=== PATIENT | female | born 1980 | race Caucasian/White ===

== ENCOUNTER 2021-03-13 10:20 | Emergency (ER) | payer OTHER, SELFPAY ==
[2021-03-13 10:20] VITALS: BP 121/107; PULSE 108; RESP 28; TEMP 36.8; O2SAT 100
--- NOTE | 2021-03-13 10:52 | ED.GENADULT ---
HPI - General Adult General Chief complaint: Shortness of Breath/Dyspnea Stated complaint: ASTHMA ATTACK History of Present Illness HPI narrative: 40-year-old female presented emerged department for evaluation of worsening shortness of breath. Patient began developing COVID symptoms approximately 5 days ago. Patient states he began developing some respiratory symptoms approximately 2 days ago. Patient has been doing her home medications as directed. Patient suspects that her current nebulizer device is no longer working. Patient called EMS due to worsening shortness of breath and a suspected anxiety attack. Patient states after she got her albuterol her symptoms resolved. Upon arrival to the emergency department patient was talking on the phone and in no distress. Related Data Home Medications Medication Instructions Recorded Confirmed belladonna alkaloids-opium 16.2 1 supp AL BID PRN ea 01/03/20 02/05/21 mg-30 mg rectal suppository clonazepam 0.5 mg tablet 0.5 mg PO DAILY PRN 01/03/20 02/05/21 oxycodone 15 mg tablet 15 mg PO Q4H PRN 01/03/20 02/05/21 polyethylene glycol 3350 17 17 g PO DAILY 01/03/20 02/05/21 gram/dose oral powder baclofen 5 mg tablet 10 mg PO TID tablet 02/05/21 02/05/21 diazepam 10 mg tablet 10 mg PO QHS PRN 02/05/21 02/05/21 gabapentin 300 mg capsule 300 mg PO TID 02/05/21 02/05/21 methylphenidate HCl 10 mg tablet 10 mg PO BID tablet 02/06/21 02/05/21 Allergies Allergy/AdvReac Type Severity Reaction Status Date / Time doxycycline Allergy Mild NAUSEA Verified 03/13/21 10:27 latex Allergy Mild ITCHING Verified 03/13/21 10:27 mold Allergy Mild Wheezing Verified 03/13/21 10:27 soybean Allergy Mild Unknown Verified 03/13/21 10:27 cephalexin Allergy Unknown Asthma Verified 03/13/21 10:27 fluoxetine Allergy Unknown Unknown Verified 03/13/21 10:27 meloxicam Allergy Unknown Unknown Verified 03/13/21 10:27 naproxen Allergy Unknown Asthma Verified 03/13/21 10:27 NSAIDS (Non-Steroidal Allergy Unknown Asthma Verified 03/13/21 10:27 Anti-Inflamma exacerbation tramadol Allergy Unknown Unknown Verified 03/13/21 10:27 vancomycin Allergy Unknown Skin Verified 08/05/17 11:43 irritation bupropion [From Wellbutrin] Allergy Hallucinati Verified 02/05/21 13:33 ons Sulfa (Sulfonamide AdvReac Mild Rash Verified 02/05/21 13:21 Antibiotics) CEPHALEXIN MONOHYDRATE Allergy Unknown Unknown Uncoded 02/05/21 13:21 Review of Systems Review of Systems: CONSTITUTIONAL: Denies fever, chills, or sweats. EYES: Denies visual changes, redness, or discharge. ENT: Denies rhinorrhea, congestion, sore throat, or otalgia. CARDIOVASCULAR: Denies chest pain, palpitations, or edema. RESPIRATORY: Asthma with shortness of breath today GASTROINTESTINAL: Denies abdominal pain, nausea, vomiting, or diarrhea. GENITOURINARY: Denies dysuria or hematuria. SKIN: Denies rash or itching. MUSCULOSKELETAL: Denies back pain, joint pain, or myalgia. NEUROLOGIC: Denies headache, numbness, or weakness. PSYCHIATRIC: History of anxiety [facility] Past Medical History Medical History (Updated 03/14/21 @ 08:23 by Sagar Arias MD) ADHD, predominantly inattentive type (~08/05/17) Allergies Anxiety Arthritis Asthma Chronic pelvic pain in female Depression Eating disorder History of Eating disorder Endometriosis Headache Interstitial cystitis Migraines Mood disorder Seasonal allergies Surgical History Surgical History H/O: hysterectomy 2018 History of appendectomy (~06/17/10) History of hip surgery (~12/2011) arthroscopic labral repair & femoral head neck osteoplasty Family History Family History Mother Family history of osteoporosis Depression Family history of migraine headaches Asthma Family history of osteoarthritis Family history of allergic disorder Sibling Depression Patient's sister is in good health
[2021-03-13 11:05] VITALS: PULSE 111; RESP 19
[2021-03-13] MEDS: ALBUTEROL SULFATE NEB 2.5 MG/0.5 ML INH 5 MG INHALATION (11:05)
[2021-03-13 11:33] VITALS: BP 120/65; PULSE 115; RESP 18
[2021-03-13 12:16] LABS: Influenza A QL RT-PCR Negative (Negative); Influenza B QL RT-PCR Negative (Negative); SARS-CoV-2 RNA PCR Negative
== END 2021-03-13 11:33 | disposition home or self-care (01) ==
PROVIDERS: Emergency Provider Emergency Medicine; PCP Internal Medicine
DX: J45.909 Unspecified asthma, uncomplicated (principal); Z20.822 Contact with and (suspected) exposure to COVID-19; F41.9 Anxiety disorder, unspecified; F90.9 Attention-deficit hyperactivity disorder, unspecified type; M19.90 Unspecified osteoarthritis, unspecified site; F32.9 Major depressive disorder, single episode, unspecified
CPT/HCPCS: 87502; 94640; 99283; C9803; U0003; U0005

== ENCOUNTER 2021-04-27 18:35 | Emergency (ER) | payer OTHER, SELFPAY ==
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
--- NOTE | ~2021-04-27 | XR_ITS ---
XR thoracic spine 3V 04/27/2021 19:33 Indication: Back pain Procedure: 3 views thoracic spine Comparison: 04/27/2021 Findings: Vertebral body heights are maintained. No paraspinal soft tissue abnormality. Pedicles inta ct. Surrounding osseous structures within normal limits. No fracture or traumatic malalignment. Impression: 1: No acute abnormality of the thoracic spine. Reviewed, dictated and finalized at location A. ATIONAL RISK MANAGER Impression: 1: No acute abnormality of the thoracic spine.
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
[2021-04-27 18:44] VITALS: BP 112/76; PULSE 109; RESP 18; TEMP 36.8; O2SAT 98
[2021-04-27 18:47] VITALS: BP 112/76; PULSE 109; RESP 18; TEMP 36.8; O2SAT 98
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
== END 2021-04-27 19:58 | disposition home or self-care (01) ==
PROVIDERS: Emergency Provider Nurse Practitioner; PCP Internal Medicine
DX: S39.012A Strain of muscle, fascia and tendon of lower back, initial encounter (principal); S16.1XXA Strain of muscle, fascia and tendon at neck level, initial encounter; V49.40XA Driver injured in collision with unspecified motor vehicles in traffic accident, initial encounter; F12.20 Cannabis dependence, uncomplicated; M19.90 Unspecified osteoarthritis, unspecified site; J45.909 Unspecified asthma, uncomplicated; N80.9 Endometriosis, unspecified; F90.9 Attention-deficit hyperactivity disorder, unspecified type
CPT/HCPCS: 72050; 72072; 72100; 99214; G0463

== ENCOUNTER → 2021-05-04 11:58 | Outpatient (CLI) | payer OTHER, SELFPAY ==
--- NOTE | ~2021-05-04 | XR_ITS ---
EXAMINATION:XR cervical spine 4-5V DATE: 05/04/2021 12:21 INDICATION: Neck pain TECHNIQUE: AP, lateral, lateral flexion, lateral extension and odontoid views of the cervical spine a re provided. COMPARISON: None FINDINGS: Alignment is normal. There is normal motion on extension. There is decreased range of motion with fle xion. No abnormal transitory motion. Odontoid is intact. Normal atlantoaxial interval. Vertebral bod y heights are normal. Disc spaces are normal. Multilevel mild bilateral cervical facet osteoarthritis . Prevertebral soft tissues are normal. IMPRESSION: 1. Bilateral mild cervical facet osteoarthritis and decreased range of motion with flexion. Reviewed, dictated and finalized at location A. NDSKEEPER IMPRESSION: 1. Bilateral mild cervical facet osteoarthritis and decreased range of motion w ith flexion.
== END ==
PROVIDERS: PCP Internal Medicine; Visit Provider Chiropractor
DX: M50.30 Other cervical disc degeneration, unspecified cervical region (principal)
CPT/HCPCS: 72050

== ENCOUNTER 2021-06-12 20:34 | Inpatient (IN) | payer OTHER, SELFPAY ==
[2021-06-12] VITALS (12 sets, daily range): BP systolic 121–194; BP diastolic 81–122; PULSE 88–132; RESP 10–25; TEMP 35.8; O2SAT 96–100
--- NOTE | ~2021-06-12 | CT_ITS ---
EXAMINATION: CT chest abdomen pelvis w con DATE: 06/12/2021 22:06 INDICATION: Cardiac arrest TECHNIQUE: Transaxial computed tomographic images of the chest, abdomen, and pelvis were obtained aft er the administration of 100 cc of Omnipaque 350 intravenous contrast. The dose-length product (DLP) was 489.10 mGy-cm. Automated exposure control and iterative reconstruction technique were employed. COMPARISON: 06/14/2010 FINDINGS: CHEST CT: The endotracheal tube is in adequate position. The nasogastric tube is in the stomach. No pathologica lly enlarged thoracic lymph nodes are identified. The heart size is normal. There are patchy airspace opacities in the lungs. A left lower lobe pneumatocele is again noted. There is no pleural effusion or pneumothorax. ABDOMEN/PELVIS CT: The liver, spleen, pancreas, gallbladder, and adrenal glands are normal. The kidneys are unremarkable . No pathologically enlarged abdominal or pelvic lymph nodes are identified. There is no free intrape ritoneal gas. There is mild gaseous distention of the stomach. The bladder is decompressed by Harden c atheter. Changes of appendectomy are noted. IMPRESSION: 1. Patchy airspace opacities in the lungs which could reflect atelectasis or possibly pneumonia. 2. No acute findings of the abdomen or pelvis. Reviewed, dictated and finalized at location F. IMPRESSION: 1. Patchy airspace opacities in the lungs which could reflect atelectasis or po ssibly pneumonia. 2. No acute findings of the abdomen or pelvis.
--- NOTE | ~2021-06-12 | XR_ITS ---
EXAMINATION: XR chest PICC line EXAM DATE: 06/14/2021 12:00 INDICATION: PICC line placement. TECHNIQUE: Portable AP frontal chest x-ray was obtained. Comparison is made to prior examination from 06/14/2021. FINDINGS: There is a new right-sided PICC line, tip suspected to be just above the cavoatrial junctio n, adequate. Endotracheal tube and nasogastric tube are both in position. There is some lumbar levosc oliosis. Segmental left lower lobe airspace disease, could be combination of pneumonia and atelectasi s, appearance unchanged. There is no pneumothorax suspected. There are no osseous abnormalities ident ified. IMPRESSION: 1. Line, tubes in position. 2. Segmental left lower lobe pneumonia and atelectasis. Reviewed, dictated and finalized at location A.
--- NOTE | ~2021-06-12 | CT_ITS ---
EXAMINATION: CT brain wo con INDICATION: Neurological changes COMPARISON: None TECHNIQUE: Standard unenhanced head CT. The dose-length product (DLP) was 605.33 mGy-cm. The mA was a djusted according to patient size. Iterative reconstruction technique was employed. FINDINGS: There is diffuse loss of louie-white differentiation. There is no intracranial hemorrhage, a cute infarction, or abnormal mass lesion. There is diffuse cerebral low attenuation, consistent with edema. There is effacement of the basilar cisterns. Partial tonsillar herniation is noted. The orbits are normal. Gaze divergence is noted. The paranasal sinuses, mastoids and calvarium are normal. IMPRESSION: 1. Constellation of findings suggestive of diffuse anoxic brain injury. Reviewed, dictated and finalized at location F.
--- NOTE | ~2021-06-12 | XR_ITS ---
EXAMINATION: XR abdomen NG/feed tube insert INDICATION: OG tube placement TECHNIQUE: Portable AP KUB-NG at 2137 hours COMPARISON: 04/07/2016 FINDINGS: The OG tube is in the stomach. There is moderate gaseous distention of the stomach. The vis ualized lung bases are clear. IMPRESSION: 1. OG tube in stomach. Reviewed, dictated and finalized at location F. IMPRESSION: 1. OG tube in stomach.
--- NOTE | ~2021-06-12 | XR_ITS ---
EXAMINATION: XR chest 1V portable DATE: 06/15/2021 06:01 INDICATION: Asthma exacerbation. Respiratory failure. TECHNIQUE: frontal view of the chest was obtained. COMPARISON: Chest radiograph dated 06/14/2021 FINDINGS: Endotracheal tube tip 3.3 cm above the elizabeth. Nasogastric tube extends below the left hemidiaphragm with distal tip collimated off the study. Right upper extremity peripherally inserted central venous catheter (PICC) tip at the mid superior vena cava. Opacities at the bilateral lower lung zone. Mild blunting at the left costophrenic angle consistent s mall pleural effusion. Nipple shadows project over the lateral aspect of the left and right lung base s. No pulmonary edema, pneumothorax or right-sided pleural effusion. The cardiomediastinal silhouette is normal. IMPRESSION: 1. Opacities at the left lower lung zone consistent with small left pleural effusion and associated a telectasis and/or pneumonia. Reviewed, dictated and finalized at location A. IMPRESSION: 1. Opacities at the left lower lung zone consistent with small left pleural eff usion and associated atelectasis and/or pneumonia.
--- NOTE | ~2021-06-12 | XR_ITS ---
EXAMINATION: XR chest ET placement INDICATION: Cardiac arrest TECHNIQUE: Portable AP chest at 2050 hours COMPARISON: 04/09/2016 FINDINGS: The endotracheal tube is 2.5 cm above the elizabeth. The lungs are free of acute opacities. Th ere is no pleural effusion or pneumothorax. The cardiomediastinal silhouette is normal. IMPRESSION: 1. No acute cardiopulmonary abnormality. 2. Endotracheal tube 2.5 cm above the elizabeth. Reviewed, dictated and finalized at location F.
--- NOTE | ~2021-06-12 | XR_ITS ---
EXAMINATION: XR chest 1V portable EXAM DATE: 06/14/2021 05:55 INDICATION: Asthma exacerbation, respiratory failure . TECHNIQUE: Portable AP frontal chest x-ray was obtained. Comparison is made to prior examination from 06/13/2021. FINDINGS: Endotracheal tube tip is 4 centimeters above the elizabeth. Feeding tube is in position. There is segmental left lower lobe airspace disease, pneumonia and/or atelectasis. There are no siza ble pleural effusions. There is no pneumothorax suspected. The cardiomediastinal silhouette is pr ominent but magnified on this AP technique. The bones and soft tissues are unremarkable. There is no significant interval change compared to prior exam. IMPRESSION: 1. Tubes in position. 2. Stable segmental left lower lobe pneumonia and/or atelectasis. Reviewed, dictated and finalized at location A.
--- NOTE | ~2021-06-12 | CT_ITS ---
EXAMINATION: CT brain wo con INDICATION: Cardiac arrest COMPARISON: None TECHNIQUE: Standard unenhanced head CT. The dose-length product (DLP) was 605.33 mGy-cm. The mA was a djusted according to patient size. Iterative reconstruction technique was employed. FINDINGS: There is no intracranial hemorrhage, acute infarction, or abnormal mass lesion. The ventric les are normal. There is no abnormal mass effect or midline shift. The louie-white matter differentiat ion is normal. The basal cisterns are patent. The orbits are normal. The paranasal sinuses, mastoids and calvarium are normal. IMPRESSION: 1. No acute intracranial abnormality. Reviewed, dictated and finalized at location F.
--- NOTE | ~2021-06-12 | XR_ITS ---
EXAMINATION: XR chest 1V portable DATE: 06/13/2021 08:19 INDICATION: Acute respiratory failure. TECHNIQUE: A single frontal view of the chest was obtained. COMPARISON: Chest single view 06/12/2020, chest CT 06/12/2021 FINDINGS: There is mild atelectasis at left lung base. No pleural effusion or pneumothorax. The heart size is normal. The endotracheal tube tip is 2.9 cm above the elizabeth. The nasogastric tube tip is in the stomach. IMPRESSION: 1. Worsened mild atelectasis at left lung base. Reviewed, dictated and finalized at location B.
--- NOTE | 2021-06-12 20:40 | ECG_ITS ---
Measurements Intervals Otto Rate: 133 P: 83 RI: 136 QRS: 42 QRSD: 110 T: 65 QT: 241 QTc: 359 Interpretive Statements SINUS TACHYCARDIA INCOMPLETE RIGHT BUNDLE BRANCH BLOCK [90+ ms QRS DURATION, TERMINAL R IN V1/V2, 40+ ms S IN I/aVL/V4/V5/V6] ST DEPRESSION, CONSIDER SUBENDOCARDIAL INJURY [0.1+ mV ST DEPRESSION] ABNORMAL ECG NO PREVIOUS ECG AVAILABLE FOR COMPARISON Electronically Signed On 06-13-2021 16:43:50 CDT by Colt Arguello M.D.
--- NOTE | 2021-06-12 20:40 | ED.CPR ---
HPI - CPR General Chief Complaint: Cardiac Arrest/CPR Stated Complaint: post cardiac arrest Time Seen by Provider: 06/12/21 20:40 Source: EMS Mode of arrival: EMS Limitations: clinical condition History of Present Illness HPI narrative: Patient is a 40-year-old female with a history of asthma, anxiety who presents via EMS following cardiac arrest, all history is obtained by EMS. Reportedly, 911 was called by the patient's spouse for shortness of breath. When they arrived to the residence, the patient was found in the bathroom, reportedly shallow respirations with altered mental status. Patient was then about to be evaluated by EMS personnel when they felt for a pulse and there was none. CPR was immediately started, patient was in PEA arrest. Patient underwent 2 rounds of CPR, epinephrine, and ROSC was achieved. Patient was then intubated for airway protection and transported to our facility. Reportedly, all of the patient's household contacts are positive for COVID. Her , contacted over the phone, reports to me that the patient has been reporting dyspnea, wheezing all day today. Tonight, she was using her rescue inhaler with increased frequency. The patient then began to take all of her close off, complained of not being able to breathe at all, then 911 was called. Per my chart review, patient required intubation for respiratory distress, extremis from asthma exacerbation in 2017 in which she was admitted to this intensive care unit. Related Data Home Medications Medication Instructions Recorded Confirmed oxycodone 15 mg tablet 15 mg PO Q4H PRN 01/03/20 04/30/21 polyethylene glycol 3350 17 17 g PO DAILY 01/03/20 04/30/21 gram/dose oral powder baclofen 5 mg tablet 10 mg PO TID tablet 02/05/21 04/30/21 belladonna alkaloids-opium 16.2 1 supp OK DAILY PRN ea 04/02/21 04/30/21 mg-30 mg rectal suppository gabapentin 300 mg capsule 300 mg PO BID cap 04/02/21 04/30/21 [id number] INHALATION 04/27/21 04/30/21 [Trelegy Ellipta] Allergies Allergy/AdvReac Type Severity Reaction Status Date / Time doxycycline Allergy Mild NAUSEA Verified 06/12/21 22:41 latex Allergy Mild ITCHING Verified 06/12/21 22:41 mold Allergy Mild Wheezing Verified 06/12/21 22:41 soybean Allergy Mild Unknown Verified 06/12/21 22:41 cephalexin Allergy Unknown Asthma Verified 06/12/21 22:41 fluoxetine Allergy Unknown Unknown Verified 06/12/21 22:41 meloxicam Allergy Unknown Unknown Verified 06/12/21 22:41 naproxen Allergy Unknown Asthma Verified 06/12/21 22:41 NSAIDS (Non-Steroidal Allergy Unknown Asthma Verified 06/12/21 22:41 Anti-Inflamma exacerbation tramadol Allergy Unknown Unknown Verified 06/12/21 22:41 vancomycin Allergy Unknown Skin Verified 06/12/21 22:41 irritation bupropion [From Wellbutrin] Allergy Hallucinati Verified 06/12/21 22:41 ons Sulfa (Sulfonamide AdvReac Mild Rash Verified 06/12/21 22:41 Antibiotics) Review of Systems Review of Systems: ROS unobtainable: Yes unobtainable due to endotracheal tube and unobtainable due to mental status PMF[facility] Past Medical History Medical History (Updated 06/12/21 @ 22:20 by Marie Roach MD) ADHD, predominantly inattentive type (~08/05/17) Anxiety Arthritis Asthma With intubation 2017 due to status asthmaticus Chronic pelvic pain in female Depression Eating disorder History of Eating disorder Endometriosis Headache Interstitial cystitis Migraines Mood disorder Seasonal allergies Vitamin D deficiency Surgical History Surgical History H/O: hysterectomy 2018 History of appendectomy (~06/17/10) History of History of hip surgery (~12/2011) arthroscopic labral repair & femoral head neck osteoplasty Family History Family History Mother Family history of osteoporosis Depression Family history of migraine headache
[2021-06-12 21:00] LABS: Alveolar/Arterial O2 Gradient 131.5 mmHg; Base Excess ABG -18.4 mEq/l (+/-2.0); Carboxyhemoglobin 0.3 % THb (0-2.0); Fractional Inspired Oxygen 50 %; HCO3 ABG 14.8 mEq/l (22.0-26.0); Methemoglobin ABG 0.4 %THb (0-1.5); Oxygen Content ABG 18.9 %vol (16.0-22.0); Oxyhemoglobin 96.2 % THb (90.0-100.0); PO2 ABG 144.7 mmHg (80.0-100.0); PO2 FiO2 Ratio Arterial Blood 2.89 %; Reduced Hemoglobin 3.1 %THb (0-5.0); Total Hemoglobin 13.8 g/dL (12.0-18.0)
[2021-06-12 21:01] LABS: Basophils Absolute Auto 0.1 K/mm3 (0.0-0.1); Basophils Percent Auto 0.7 % (0.2-1.2); Eosinophils Absolute Auto 0.4 K/mm3 (0-0.3); Eosinophils Percent Auto 2.3 % (0-4.4); Hematocrit 41.4 % (37.0-47.0); Immature Granulocyte Absolute 0.19 K/mm3 (0.00-0.031); Immature Granulocyte Percent A 1.1 % (0-0.5); Lymphocytes Absolute Auto 10.16 K/mm3 (0.9-3.2); Lymphocytes Percent Auto 56.6 % (18.3-44.2); Mean Corpuscular HGB Conc 31.4 g/dl (32-36); Mean Corpuscular Hemoglobin 31.9 pg (26-34); Mean Corpuscular Volume 101.5 fl (80-100); Mean Platelet Volume 9.7 fl (7.4-10.4); Monocytes Absolute Auto 1.2 K/mm3 (0.1-0.6); Monocytes Percent Auto 6.6 % (2.6-8.5); Neutrophils Absolute Auto 5.9 K/mm3 (1.3-6.7); Neutrophils Percent Auto 32.7 % (45.5-73.1); Platelet Count Result 300 k/mm3 (150-375); Red Blood Count 4.08 M/mm3 (4.2-5.4); Red Cell Distribution Width 12.1 % (11.5-14.5); White Blood Count 17.9 K/mm3 (4.5-10.0)
[2021-06-12 21:02] LABS: Device VENTILATOR; Modified Allen's Test Pass; Site Drawn RIGHT RADIAL
--- NOTE | 2021-06-12 21:02 | PC.NURSE ---
7.0 tube 23 at the lips
[2021-06-12 21:03] LABS: Arterial Blood Gas PEEP 5 cmH2O; Arterial Blood Gas Tidal Volume 350 ml; Arterial Blood Gas Vent Mode CMV; Arterial Blood Gas Ventilator rate 12 /MIN
[2021-06-12] MEDS: IPRATROPIUM BR 0.02% INH SOLN 0.5 MG/2.5 ML VIAL 2 MG INHALATION (21:06)
[2021-06-12] MEDS: ALBUTEROL SULFATE NEB 2.5 MG/0.5 ML INH 10 MG (21:06)
[2021-06-12 21:14] LABS: INR 1.3
[2021-06-12 21:15] LABS: Atypical Lymphocytes Present; Partial Thromboplastin Time 32.5 SECONDS (22.3-36.8); Platelet Estimate Adequate (Adequate)
[2021-06-12] MEDS: SODIUM CHLORIDE 0.9% IV 1,000 ML 999 ML IV CONT (21:16)
[2021-06-12] MEDS: SODIUM BICARBONATE 8.4% 50 MEQ/50 ML SYRINGE IV PUSH (21:16)
[2021-06-12 21:17] LABS: Alkaline Phosphatase 59 U/L (38-126); Anion Gap 20 mmol/L (8-16); Bilirubin,Total 0.2 mg/dL (0.2-1.3); Blood Urea Nitrogen 25 mg/dL (7-17); Calcium 7.7 mg/dL (8.4-10.2); Carbon Dioxide 14 mmol/L (22-30); Chloride 105 mmol/L (98-107); Cholesterol 153 mg/dL (0-200); D Dimer 1.02 ug/mL (<0.48); Estimated Glomerular Filt Rate > 60; Glucose 285 mg/dL (65-110); HDL Direct 59 mg/dL; Potassium 2.9 mmol/L (3.4-5.0); Sodium 139 mmol/L (137-145); Triglycerides 106 mg/dL (<150)
[2021-06-12] MEDS: methylPREDNISolone SOD SUCC 125 MG VIAL IV PUSH (21:19)
[2021-06-12 21:20] LABS: Lactic Acid Reflex 8.2 mmol/L (0.7-2.1)
[2021-06-12 21:21] LABS: Alanine Aminotransferase 80 U/L (4-35); Aspartate Amino Transferase 118 U/L (14-36)
[2021-06-12] MEDS: ALBUTEROL SULFATE NEB 2.5 MG/0.5 ML INH 20 MG INHALATION (21:22)
[2021-06-12 21:23] LABS: LDL Cholesterol Direct 64 mg/dL
[2021-06-12 21:26] LABS: Troponin I < 0.012 ng/mL (0.000-0.034)
[2021-06-12 21:27] LABS: NT Pro B Type Natriuretic Pept 103 pg/mL (5-100)
[2021-06-12] MEDS: MAGNESIUM SULF 2 GM/WATER 50ML 2 GM/50 ML BAG IVPB (21:27)
--- NOTE | 2021-06-12 21:30 | PC.NURSE ---
OG tube placed at this time, 55 at the lips
[2021-06-12] MEDS: SODIUM CHLORIDE 0.9% IV 500 ML 999 ML IV CONT (21:31)
--- NOTE | 2021-06-12 21:32 | PC.NURSE ---
Per pt mother pt is being seen by an crane oiler for evaluation, pt mother requests information is sent to them after d/c.
[2021-06-12 21:44] LABS: SARS-CoV-2 RNA PCR Negative
[2021-06-12 21:46] LABS: Appearance Urine Clear (Clear); Bilirubin Urine Negative (Negative); Blood Urine 2+ (Negative); Color Urine Yellow (Yellow); Glucose Urine UA 1+ mg/dL (Negative); Ketones Urine Negative (Negative); Leukocyte Esterase Ur Negative LEU/UL (Negative); Nitrate Urine Negative (Negative); Protein Urine 2+ mg/dL (Negative); Specific Grav Ur 1.025 (1.001-1.035)
[2021-06-12 21:54] LABS: Bacteria Urine 2+ /hpf; Mucus Urine Rare /lpf; Squamous Epithelial Cell Urine Rare /hpf (Few)
--- NOTE | 2021-06-12 21:54 | PM.IMHP ---
H&P: HPI History of Present Illness Date/Time: 06/12/21 21:54 Chief Complaint: Respiratory arrest Narrative: 40-year-old female with past medical history of chronic pain an asthma with prior intubation intubation 2017 for status asthmaticus who presented to the ER with pulmonary arrest resulting in cardiac arrest. Everyone in the patient's home is positive for COVID. Source of information is from patient's mother and father at bedside and review of past medical records. The patient's family members became ill 3 days ago. Her 12-year-old and 8-year-old child have both have COVID. The patient herself was not having any cough or cold symptoms. The patient had not been tested for COVID. The patient had been vaccinated. 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 The patient had been more short of breath since the morning. The patient had used her rescue inhalers throughout the afternoon without relief in symptoms. Avoid from reported that the patient had been having increased wheezing all day. She went to the bathroom and started taking off all of her clothes because she felt like she could not breathe. When EMS arrived at the home the patient was having rapid shallow respirations and was altered. When EMS evaluated the patient they felt for a pulse and the patient was in PE AA. CPR was initiated the patient received 2 rounds of CPR with epinephrine and had return of RoSC. The patient was intubated and brought to the ER. On arrival to the ER patient was tachycardic with good perfusing blood pressures. Patient was tested for COVID in the ER and was negative. The patient initially had absent breath sounds on presentation and received 2 1 hour albuterol nebulizers and 125 mg of Solu-Medrol as well as 2 mg of magnesium sulfate. The patient had improvement of aeration after 2nd nebulizer treatment. The patient was element high peak pressures but peak pressures improved after sedation with fentanyl. Patient was still having marked tachypnea on the vent with respiratory rates 30-50. I requested that the patient received more sedation with Versed and then Nimbex be administered. Of Versed was initiated in the ER that Nimbex was not started to the patient arrived to the ICU. Patient's mother and father were updated to management and plan at bedside in the ER. Review of Systems Review of Systems: ROS unobtainable: Yes unobtainable due to endotracheal tube PMFSH Past Medical History Medical History ADHD, predominantly inattentive type (~08/05/17) Anxiety Arthritis Asthma With intubation 2017 due to status asthmaticus Chronic pelvic pain in female Depression Eating disorder History of Eating disorder Endometriosis Headache Interstitial cystitis Migraines Mood disorder Seasonal allergies Vitamin D deficiency Surgical History Surgical History H/O: hysterectomy 2018 History of appendectomy (~06/17/10) History of History of hip surgery (~12/2011) arthroscopic labral repair & femoral head neck osteoplasty Family History Family History Mother Family history of osteoporosis Depression Family history of migraine headaches Asthma Family history of osteoarthritis Family history of allergic disorder Sibling Depression Patient's sister is in good health Patient's brother is in good health Family history of allergic disorder Family history of alcoholism Asthma Father Patient's father is in good health Family history of allergic disorder Family history of alcoholism Depression Grandparent Family history of malignant neoplasm Social History Social History (Updated 06/13/21 @ 08:19 by Elissa Savage DO) Social History: Code status: Full code Smoking status: Current every day smoker Second
[2021-06-12 21:57] LABS: Add Urine Microscopic? YES
[2021-06-12 22:01] LABS: Amphetamine Screen Urine Negative (Negative); Barbiturate Screen Urine Negative (Negative); Benzodiazepines Screen Urine Positive (Negative); Cannabinoid Screen Urine Positive (Negative); Cocaine Screen Urine Negative (Negative); Methadone Screen Urine Negative (Negative); Opiate Screen Urine Negative (Negative); Phencyclidine Screen Urine Negative (Negative)
[2021-06-12] MEDS: MINERAL OIL/WHITE PETROLATUM OINTMENT 1 APPLIC EACH EYE (22:06)
[2021-06-12] MEDS: fentaNYL CITRATE INJ (*CRX) 100 MCG/2 ML VIAL 50 MCG IV PUSH (22:10)
[2021-06-12 22:16] LABS: Alveolar/Arterial O2 Gradient 104.1 mmHg; Base Excess ABG -8.2 mEq/l (+/-2.0); Carboxyhemoglobin 0.3 % THb (0-2.0); Fractional Inspired Oxygen 35 %; HCO3 ABG 17.7 mEq/l (22.0-26.0); Methemoglobin ABG 0.2 %THb (0-1.5); Oxygen Content ABG 18.9 %vol (16.0-22.0); Oxygen Saturation ABG 97.1 % (95.0-100.0); Oxyhemoglobin 96.1 % THb (90.0-100.0); PCO2 ABG 37.7 mmHg (35.0-45.0); PO2 ABG 101.6 mmHg (80.0-100.0); Reduced Hemoglobin 3.4 %THb (0-5.0); Total Hemoglobin 13.9 g/dL (12.0-18.0)
[2021-06-12 22:18] LABS: Arterial Blood Gas PEEP 5 cmH2O; Arterial Blood Gas Tidal Volume 350 ml; Arterial Blood Gas Vent Mode CMV; Arterial Blood Gas Ventilator rate 16 /MIN; Device VENTILATOR; Modified Allen's Test Pass; Site Drawn RIGHT RADIAL; pH ABG 7.289 (7.350-7.450)
[2021-06-12] MEDS: FENTANYL 2,500MCG/NS250ML(*CRX 2,500 MCG/250 ML BAG IV CONT (22:18)
[2021-06-12 22:21] LABS: Magnesium 2.2 mg/dL (1.6-2.3)
[2021-06-12] MEDS: POTASSIUM CHLORIDE INJ 40 MEQ in SODIUM CHLORIDE 0.9% IV 500 ML 130 MEQ IVPB (22:23)
--- NOTE | 2021-06-12 23:06 | PC.NURSE ---
per Dr alvarado, hold propofol, and hold nimbex until pt in ICU
[2021-06-12] MEDS: MIDAZOLAM 100MG/NS 100ML(*CRX) 100 MG/100 ML BAG IV CONT (23:21)
[2021-06-13] VITALS (53 sets, daily range): BP systolic 111–154; BP diastolic 71–101; PULSE 90–128; RESP 20–40; TEMP 36.6–38.1; O2SAT 92–100; BMI 24.1
[2021-06-13 00:05] LABS: Reflex Lactic Acid Yes or No Add Lactic
[2021-06-13] MEDS: MIDAZOLAM 100MG/NS 100ML(*CRX) 100 MG/100 ML BAG IV CONT ×2 (00:05→14:17)
[2021-06-13] MEDS: ROCURONIUM BROMIDE 50 MG/5 ML VIAL IV PUSH (00:20)
[2021-06-13] MEDS: CISATRACURIUM BESYLATE 200 MG in DEXTROSE 5% 80 ML IV CONT ×3 (00:33→16:11)
[2021-06-13] MEDS: methylPREDNISolone SOD SUCC 125 MG VIAL 60 MG IV PUSH ×4 (00:41→17:39)
[2021-06-13 00:57] LABS: Lactic Acid 2.4 mmol/L (0.7-2.1)
[2021-06-13 01:19] LABS: Troponin I 0.362 ng/mL (0.000-0.034)
[2021-06-13 01:20] LABS: CRP < 0.5 mg/dL (<1.0)
[2021-06-13] MEDS: levETIRAcetam 500MG/NACL 100ML 500 MG/100 ML BAG 400 MG IVPB ×3 (01:24→21:10)
--- NOTE | 2021-06-13 01:49 | ADMGEN ---
This patient, Shirley Nowak, was admitted to Intensive Care Unit-3. Patient/family oriented to hospital policies and general routines including ID bracelet, bed and alarms, visiting hours, pain management, procedures, bathroom and other care routines, personal items, smoking policy, room service/diet, and visiting hours. Information on how to activate the Rapid Response Team has been discussed. Patient/Family are encouraged to report perceived risks to care and to ask questions if they do not understand what they are told or what they should do.
[2021-06-13] MEDS: ALBUTEROL SULFATE NEB 2.5 MG/0.5 ML INH 5 MG INHALATION (01:55)
[2021-06-13] MEDS: IPRATROPIUM BR 0.02% INH SOLN 0.5 MG/2.5 ML VIAL INHALATION ×4 (01:56→19:57)
[2021-06-13 02:42] LABS: Influenza Control Positive
[2021-06-13] MEDS: LACTATED RINGERS 1,000 ML 100 ML IV CONT ×2 (04:34→16:11)
[2021-06-13 05:19] LABS: Troponin I 0.607 ng/mL (0.000-0.034)
[2021-06-13 05:53] LABS: Alveolar/Arterial O2 Gradient 81.4 mmHg; Base Excess ABG -8.3 mEq/l (+/-2.0); Carboxyhemoglobin 0.3 % THb (0-2.0); Fractional Inspired Oxygen 35 %; HCO3 ABG 20.8 mEq/l (22.0-26.0); Methemoglobin ABG 0.4 %THb (0-1.5); Oxygen Content ABG 19.8 %vol (16.0-22.0); Oxygen Saturation ABG 95.9 % (95.0-100.0); Oxyhemoglobin 95.4 % THb (90.0-100.0); PCO2 ABG 57.8 mmHg (35.0-45.0); PO2 FiO2 Ratio Arterial Blood 2.89 %; Reduced Hemoglobin 3.9 %THb (0-5.0); Total Hemoglobin 14.7 g/dL (12.0-18.0)
[2021-06-13 05:55] LABS: pH ABG 7.175 (7.350-7.450)
[2021-06-13 05:56] LABS: Arterial Blood Gas PEEP 5 cmH2O; Arterial Blood Gas Tidal Volume 300 ml; Arterial Blood Gas Vent Mode CMV; Arterial Blood Gas Ventilator rate 20 /MIN; Device VENTILATOR; Modified Allen's Test Pass; Site Drawn LEFT RADIAL
[2021-06-13 07:50] LABS: Basophils Percent Auto 0.1 % (0.2-1.2); Hematocrit 37.5 % (37.0-47.0); Hemoglobin 12.4 g/dL (12.0-15.0); Immature Granulocyte Percent A 0.5 % (0-0.5); Lymphocytes Absolute Auto 0.37 K/mm3 (0.9-3.2); Mean Corpuscular HGB Conc 33.1 g/dl (32-36); Mean Corpuscular Hemoglobin 32.3 pg (26-34); Mean Corpuscular Volume 97.7 fl (80-100); Mean Platelet Volume 9.6 fl (7.4-10.4); Monocytes Absolute Auto 0.7 K/mm3 (0.1-0.6); Monocytes Percent Auto 3.7 % (2.6-8.5); Neutrophils Absolute Auto 17.4 K/mm3 (1.3-6.7); Neutrophils Percent Auto 93.7 % (45.5-73.1); Platelet Count Result 230 k/mm3 (150-375); Red Blood Count 3.84 M/mm3 (4.2-5.4); Red Cell Distribution Width 12.3 % (11.5-14.5); White Blood Count 18.6 K/mm3 (4.5-10.0)
[2021-06-13] MEDS: SODIUM CHLORIDE 0.9% IV 1,000 ML 999 ML IV CONT ×2 (08:22→13:58)
[2021-06-13 08:23] LABS: Lactic Acid Reflex 9.1 mmol/L (0.7-2.1)
[2021-06-13 08:24] LABS: Alanine Aminotransferase 109 U/L (4-35); Albumin Level 3.9 g/dL (3.5-5.1); Alkaline Phosphatase 66 U/L (38-126); Anion Gap 13 mmol/L (8-16); Aspartate Amino Transferase 106 U/L (14-36); Bilirubin,Total < 0.1 mg/dL (0.2-1.3); Blood Urea Nitrogen 17 mg/dL (7-17); Calcium 7.3 mg/dL (8.4-10.2); Carbon Dioxide 19 mmol/L (22-30); Chloride 107 mmol/L (98-107); Estimated CRCL calculation 93 ml/min; Estimated Glomerular Filt Rate > 60; Glucose 183 mg/dL (65-110); Magnesium 1.7 mg/dL (1.6-2.3); Phosphorus 3.4 mg/dL (2.5-4.5); Potassium 3.9 mmol/L (3.4-5.0); Sodium 139 mmol/L (137-145); Troponin I 0.851 ng/mL (0.000-0.034)
[2021-06-13] MEDS: FAMOTIDINE 20 MG/2 ML VIAL IV PUSH ×2 (08:24→21:27)
[2021-06-13] MEDS: ENOXAPARIN 40 MG/0.4 ML SYRINGE SUB-Q (08:25)
[2021-06-13] MEDS: MINERAL OIL/WHITE PETROLATUM OINTMENT 1 APPLIC EACH EYE ×2 (08:25→21:27)
[2021-06-13] MEDS: SODIUM CHLORIDE 0.9% IV 500 ML 999 ML IV CONT (09:38)
[2021-06-13 10:08] LABS: PCO2 ABG 71.4 mmHg (35.0-45.0); pH ABG 6.933 (7.350-7.450)
[2021-06-13 11:44] LABS: Alveolar/Arterial O2 Gradient 40.7 mmHg; Base Excess ABG -8.8 mEq/l (+/-2.0); Fractional Inspired Oxygen 30 %; HCO3 ABG 15.6 mEq/l (22.0-26.0); Oxygen Content ABG 19.4 %vol (16.0-22.0); Oxygen Saturation ABG 98.6 % (95.0-100.0); Oxyhemoglobin 97.4 % THb (90.0-100.0); PCO2 ABG 29.8 mmHg (35.0-45.0); PO2 ABG 138.2 mmHg (80.0-100.0); PO2 FiO2 Ratio Arterial Blood 4.61 %; pH ABG 7.337 (7.350-7.450)
[2021-06-13 11:45] LABS: Arterial Blood Gas PEEP 5 cmH2O; Arterial Blood Gas Tidal Volume 370 ml; Arterial Blood Gas Vent Mode CMV; Arterial Blood Gas Ventilator rate 24 /MIN; Device VENTILATOR; Modified Allen's Test Pass; Site Drawn LEFT RADIAL
--- NOTE | 2021-06-13 12:45 | WPDCNINT ---
Assessment and Plan Assessment and plan (1) Acute respiratory failure: Code(s): J96.00 - Acute respiratory failure, unspecified whether with hypoxia or hypercapnia Status: Acute Assessment and Plan: Acute respiratory failure likely related to asthma exacerbation, cardiac arrest -patient was intubated on 06/12/2021 on site by EMS -patient currently on CMV mode of ventilation, peep of 5, tidal volume was 300, rate of 20 35% FiO2. ABGs continues to show hypercapnic respiratory failure -ventilator adjusted, increase tidal volume 370, rate to 24. Maintained peep 5 and FiO2 of 35% -ABGs much improved -chest x-ray reviewed -continue Solu-Medrol, -continue ceftriaxone and azithromycin -continue bronchodilators -sedated with fentanyl, Versed, Nimbex for neuromuscular blockade (2) Cardiac arrest due to respiratory disorder: Code(s): J98.9 - Respiratory disorder, unspecified; I46.8 - Cardiac arrest due to other underlying condition Status: Acute Assessment and Plan: Upon arrival of the EMS to the home patient had PEA arrest with ROSC after 2 rounds of epinephrine and 2 rounds of CPR. -patient currently intubated and sedated for possible status asthmaticus -patient also on Nimbex -she was started on Keppra seizure prophylaxis - (3) Close exposure to COVID-19 virus: Code(s): Z20.822 - Contact with and (suspected) exposure to COVID-19 Status: Acute Assessment and Plan: Patient has 2 children at home have tested positive for COVID also on the family members who she is around have tested positive for COVID-19 -patient is negative for COVID-19 PCR a and influenza A and B on admission -given the patient's exposure to COVID-19 is very recent, she could be in the incubation. Repeat SARS-CoV-2 PCR PCR on 06/14 (4) Asthma exacerbation: Qualifiers: Asthma severity: severe Asthma persistence: persistent Qualified Code(s): J45.51 - Severe persistent asthma with (acute) exacerbation Code(s): J45.901 - Unspecified asthma with (acute) exacerbation Status: Acute Assessment and Plan: 06/12/21: CT chest, abdomen, pelvis Patchy airspace opacities in the lungs which could reflect atelectasis or possibly pneumonia. No acute findings of the abdomen or pelvis. (5) DVT prophylaxis: Code(s): Z29.9 - Encounter for prophylactic measures, unspecified Status: Acute Assessment and Plan: Continue subQ Lovenox Additional Plan Stress ulcer prophylaxis: Pepcid Nutrition: Will start tube feeds Code status: Full code Critical care time spent: 44 minutes This dictation may have been done utilizing a voice recognition system. Attempts have been made to correct errors. However, there may be uncorrected grammatical, spelling, and recognition errors present. Due to a high probability of clinically significant, life threatening deterioration, the patient required my highest level of preparedness to intervene emergently and I personally spent this critical care time directly and personally managing the patient. This critical care time included obtaining a history; examining the patient; pulse oximetry; ordering and review of studies; arranging urgent treatment with development of a management plan; evaluation of patient's response to treatment; frequent reassessment; and discussions with other providers. It was exclusive of separately billable procedures and treating other patients and teaching time. Please see Assessment and Plan section and the rest of the note for further information on patient assessment and treatment Braille Operator Consult Note Consult date: 06/13/21 Time Seen: 07:09 Reason for consult: Acute respiratory failure, asthma exacerbation HPI: Shirley Nowak is a 40 year old female with past medical history of ADHD, anxiety, arthritis, asthma requiring intubation in 2006 22 status asthmaticus, cardiac pelvic pain, depression, mood mood disorder, interstitial cysti
[2021-06-13 13:27] LABS: Lactic Acid Reflex 5.3 mmol/L (0.7-2.1)
[2021-06-13] MEDS: FENTANYL 2,500MCG/NS250ML(*CRX 2,500 MCG/250 ML BAG 15 MCG IV CONT (13:58)
--- NOTE | 2021-06-13 14:27 | PM.IMPN ---
Progress Note: A&P Assessment and Plan (1) Acute respiratory failure: Code(s): J96.00 - Acute respiratory failure, unspecified whether with hypoxia or hypercapnia Status: Acute Assessment and Plan: Acute respiratory failure related to asthma exacerbation and subsequent cardiac arrest requiring intubated 06/12/21 in the field. Most recent ABG better at 7.34/30/138 on MV. Continue current treatment plan with abx, steroids and sophia treatments. Sedated with fentanyl and Versed; Nimbex for neuromuscular blockade. Continue MV. Appreciate deputy of counter intelligence input. (2) Cardiac arrest due to respiratory disorder: Code(s): J98.9 - Respiratory disorder, unspecified; I46.8 - Cardiac arrest due to other underlying condition Status: Acute Assessment and Plan: Upon arrival, EMS found the patient with shallow respirations with altered mental status. Assessment revealed no pulse so CPR started for PEA with ROSC achieved after 2 rounds of epinephrine and 2 rounds of CPR. Patient was then intubated. Suspect respiratory arrest resulting in a cardiac arrest. Patient currently intubated, sedated and paralyzed. She has been started on Keppra for seizure prophylaxis. Wean paralytics and sedation to assess mental status when able. (3) Lactic acidosis: Code(s): E87.2 - Acidosis Status: Acute Assessment and Plan: Lactic acid 8.2 on admission related to the code. LA still elevated probably contributing to the metabolic acidosis. Albuterol can cause elevated LA so this may be contributing as well. Albuterol was changed to Xopenex. Follow. (4) Close exposure to COVID-19 virus: Code(s): Z20.822 - Contact with and (suspected) exposure to COVID-19 Status: Acute Assessment and Plan: Multiple family memebers have tested positive for COVID recently. Patient is vaccinated against COVID. She was negative for COVID-19 PCR and influenza A and B on admission. CT chest showing patchy airspace opacities in the lungs which could reflect atelectasis or possibly pneumonia. She is currently on isolation for possible COVID. Repeat testing being planned. Continue abx. (5) Asthma exacerbation: Qualifiers: Asthma persistence: persistent Asthma severity: severe Qualified Code(s): J45.51 - Severe persistent asthma with (acute) exacerbation Code(s): J45.901 - Unspecified asthma with (acute) exacerbation Status: Acute Assessment and Plan: CT ch/abd/pelvis showing patchy airspace opacities in the lungs which could reflect atelectasis or possibly pneumonia. No acute findings of the abdomen or pelvis. No wheezing but poor air exchange on admission. Suspect status asthmaticus to explain her pulmonary arrest. She remains on steroids, abx and neb treatments. As above (6) DVT prophylaxis: Code(s): Z29.9 - Encounter for prophylactic measures, unspecified Status: Acute Assessment and Plan: Lovenox Subjective Date/time seen: 06/13/21 14:27 Interval history: 40yo female with asthma her for cardiopulmonary arrest with return of ROSC in the filed. Patient currently intubated, sedated and paralyzed.TF to start. Having low grade fevers now. +BMs. Recent exposure to COVID. UTD on COVID vaccine. Review of Systems Review of Systems: ROS unobtainable: Yes unobtainable due to endotracheal tube Exam Narrative: Tm 100.4 149/93 119 24 96% MV 35% FiO2 Gen - intubated, sedated HEENT - ETT and OG secured Chest - distant breath sounds, no wheezing CV - tachycardic, regular. Tele showing no significant dysrhythmias. Abd - Soft, NT/ND, hypoactive BS - Harden secured draining clear yellow urine Ext - No pedal edema. 2+ DP bilaterally Neuro - sedated, paralyzed Skin - cool and dry Objective Data Vital Signs Vital Signs: Vital Signs - 24 hr 06/12/21 20:35 06/12/21 20:54 06/12/21 21:07 Temperature 96.5 F L Pulse Rate 127 H 132 H Respiratory Rate 10
[2021-06-13 16:02] LABS: Reflex Lactic Acid Yes or No Add Lactic
[2021-06-13 17:00] LABS: Lactic Acid 5.4 mmol/L (0.7-2.1)
[2021-06-13] MEDS: CLINDAMYCIN 600 MG/D5W 50 ML 600 MG/50 ML PIGGYBACK 100 MG IVPB (21:24)
[2021-06-14] VITALS (43 sets, daily range): BP systolic 111–143; BP diastolic 71–98; PULSE 60–112; RESP 24–99; TEMP 37.2–37.8; O2SAT 24–100
--- NOTE | 2021-06-14 | ECHO_ITS ---
Patient Info Name: Shirley Nowak Age: 40 years : 1980 Gender: Female Ht: 61 in Wt: 130 lbs BSA: 1.60 m2 HR: 98 bpm BP: 136 / 93 mmHg Technical Quality: Good Exam Date: 06/14/2021 1:31 PM Exam Location: [facility] Patient Status: Inpatient Admit Date: 06/12/2021 Staff Ordering Physician: Braydon Muñoz MD Sewer Maintenance Supervisor: Manav Suggs RDCS, RT Attending Provider: Elissa Savage DO Exam Type: CA echo doppler color flow Study Info Indications R94.31 - Abnormal electrocardiogram ECG EKG Complete two-dimensional, color flow and Doppler transthoracic echocardiogram is performed. Strain analysis performed. Summary 1. Complete two-dimensional, color flow and Doppler transthoracic echocardiogram is performed. 2. Left ventricular chamber dimension is normal. 3. Left ventricular systolic function is normal, estimated at 60-65%. 4. The left ventricular diastolic function is abnormal. 5. E/e' 10 is mildly elevated. 6. Global longitudinal strain is normal at -20.4%. Left Ventricle E/e' 10 is mildly elevated. Global longitudinal strain is normal at -20.4%. Left ventricular chamber dimension is normal. Left ventricular systolic function is normal, estimated at 60-65%. The left ventricular diastolic function is abnormal. Right Ventricle Right ventricular systolic function is normal with normal TAPSE 2.1 cm. Right ventricular chamber dimension is normal. Left Atria Left atrial chamber dimension is normal. Right Atria Right atrial chamber dimension is normal. Aortic Valve The aortic valve is not well visualized. Cannot determine number of aortic valve leaflets. There is no aortic valve stenosis. There is no aortic valve regurgitation. Pulmonic Valve There is no pulmonic regurgitation. Mitral Valve There is no mitral valve stenosis. There is no mitral valve regurgitation. Tricuspid Valve There is no tricuspid valve regurgitation. Pericardium/Pleural There is no pericardial effusion. Inferior Vena Cava Normal inferior vena cava with >50% collapse upon inspiration consistent with normal right atrial pressure, 5 mmHg. Aorta The aortic root size at the sinus of Valsalva is normal. Left Ventricular Outflow Tract Name Value Normal LVOT 2D LVOT Diameter 2.0 cm LVOT Doppler LVOT Peak Gradient 6 mmHg LVOT Mean Gradient 3 mmHg LVOT VTI 21 cm LVOT VTI/AV VTI Ratio 0.9 LVOT Stroke Volume 63 ml LVOT CO 6.2 l/min LVOT CI 3.8 l/min/m2 Mitral Valve Name Value Normal MV Doppler MV Decel [place] 747 cm/s2 MV PHT 42 ms MV Area (PHT)
[2021-06-14] MEDS: CLINDAMYCIN 600 MG/D5W 50 ML 600 MG/50 ML PIGGYBACK 100 MG IVPB ×5 (00:03→23:12)
[2021-06-14] MEDS: methylPREDNISolone SOD SUCC 125 MG VIAL 60 MG IV PUSH ×5 (00:06→23:56)
[2021-06-14 01:01] LABS: Glucose Point of Care 154 mg/dl (65-105)
[2021-06-14] MEDS: IPRATROPIUM BR 0.02% INH SOLN 0.5 MG/2.5 ML VIAL INHALATION ×4 (02:00→20:20)
[2021-06-14] MEDS: LACTATED RINGERS 1,000 ML 100 ML IV CONT (04:12)
[2021-06-14] MEDS: FENTANYL 2,500MCG/NS250ML(*CRX 2,500 MCG/250 ML BAG 17.5 MCG IV CONT (04:37)
[2021-06-14 04:55] LABS: Alveolar/Arterial O2 Gradient 105.6 mmHg; Base Excess ABG 0.4 mEq/l (+/-2.0); Carboxyhemoglobin 0.2 % THb (0-2.0); Fractional Inspired Oxygen 35 %; HCO3 ABG 23.2 mEq/l (22.0-26.0); Methemoglobin ABG 0.4 %THb (0-1.5); Oxygen Content ABG 18.7 %vol (16.0-22.0); Oxygen Saturation ABG 98.3 % (95.0-100.0); Oxyhemoglobin 97.2 % THb (90.0-100.0); PCO2 ABG 31.8 mmHg (35.0-45.0); PO2 FiO2 Ratio Arterial Blood 3.06 %; Reduced Hemoglobin 2.2 %THb (0-5.0); Total Hemoglobin 13.6 g/dL (12.0-18.0)
[2021-06-14 04:56] LABS: Arterial Blood Gas Ventilator rate 24 /MIN; Device VENTILATOR; Site Drawn RIGHT BRACHIAL
[2021-06-14 04:57] LABS: Arterial Blood Gas PEEP 5 cmH2O; Arterial Blood Gas Tidal Volume 370 ml; Arterial Blood Gas Vent Mode CMV
[2021-06-14 05:57] LABS: Basophils Absolute Auto 0.1 K/mm3 (0.0-0.1); Basophils Percent Auto 0.2 % (0.2-1.2); Hematocrit 37.3 % (37.0-47.0); Hemoglobin 12.6 g/dL (12.0-15.0); Immature Granulocyte Absolute 0.51 K/mm3 (0.00-0.031); Immature Granulocyte Percent A 1.9 % (0-0.5); Lymphocytes Absolute Auto 0.66 K/mm3 (0.9-3.2); Lymphocytes Percent Auto 2.4 % (18.3-44.2); Mean Corpuscular HGB Conc 33.8 g/dl (32-36); Mean Corpuscular Hemoglobin 32.4 pg (26-34); Mean Corpuscular Volume 95.9 fl (80-100); Mean Platelet Volume 9.7 fl (7.4-10.4); Monocytes Absolute Auto 1.4 K/mm3 (0.1-0.6); Monocytes Percent Auto 5.2 % (2.6-8.5); Neutrophils Absolute Auto 24.4 K/mm3 (1.3-6.7); Neutrophils Percent Auto 90.3 % (45.5-73.1); Platelet Count Result 181 k/mm3 (150-375); Red Blood Count 3.89 M/mm3 (4.2-5.4); Red Cell Distribution Width 12.4 % (11.5-14.5); White Blood Count 27.1 K/mm3 (4.5-10.0)
[2021-06-14 06:10] LABS: Lactic Acid Reflex 1.7 mmol/L (0.7-2.1)
[2021-06-14 06:11] LABS: Alanine Aminotransferase 81 U/L (4-35); Albumin Level 3.4 g/dL (3.5-5.1); Alkaline Phosphatase 64 U/L (38-126); Anion Gap 4 mmol/L (8-16); Aspartate Amino Transferase 80 U/L (14-36); Bilirubin,Total 0.3 mg/dL (0.2-1.3); Blood Urea Nitrogen 12 mg/dL (7-17); Calcium 8.2 mg/dL (8.4-10.2); Carbon Dioxide 26 mmol/L (22-30); Chloride 107 mmol/L (98-107); Estimated CRCL calculation 93 ml/min; Estimated Glomerular Filt Rate > 60; Glucose 145 mg/dL (65-110); Magnesium 1.9 mg/dL (1.6-2.3); Phosphorus 2.2 mg/dL (2.5-4.5); Potassium 3.1 mmol/L (3.4-5.0); Sodium 137 mmol/L (137-145)
[2021-06-14] MEDS: levETIRAcetam 500MG/NACL 100ML 500 MG/100 ML BAG 400 MG IVPB ×2 (08:18→20:04)
[2021-06-14] MEDS: DOCUSATE SODIUM LIQ 100 MG/10 ML UDC PO ×2 (08:19→20:07)
[2021-06-14] MEDS: ENOXAPARIN 40 MG/0.4 ML SYRINGE SUB-Q (08:20)
[2021-06-14] MEDS: FAMOTIDINE 20 MG/2 ML VIAL IV PUSH ×2 (08:20→20:06)
[2021-06-14] MEDS: MINERAL OIL/WHITE PETROLATUM OINTMENT 1 APPLIC EACH EYE ×2 (08:21→20:06)
[2021-06-14] MEDS: MIDAZOLAM 100MG/NS 100ML(*CRX) 100 MG/100 ML BAG IV CONT (08:24)
--- NOTE | 2021-06-14 09:25 | WPDINTPN ---
Progress Note: A&P Assessment and Plan (1) Acute respiratory failure: Code(s): J96.00 - Acute respiratory failure, unspecified whether with hypoxia or hypercapnia Status: Acute Assessment and Plan: Acute respiratory failure likely related to asthma exacerbation, cardiac arrest -patient was intubated on 06/12/2021 on site by EMS -patient currently on CMV mode of ventilation, peep of 5, tidal volume was 300, rate of 20 35% FiO2. ABGs continues to show hypercapnic respiratory failure -ventilator adjusted, increase tidal volume 370, rate to 24. Maintained peep 5 and FiO2 of 35% -ABGs much improved -chest x-ray reviewed -continue Solu-Medrol, -continue ceftriaxone and azithromycin -continue bronchodilators -sedated with fentanyl, Versed, -will wean Nimbex to OFF, -will also wean sedation and wake the patient (2) Cardiac arrest due to respiratory disorder: Code(s): J98.9 - Respiratory disorder, unspecified; I46.8 - Cardiac arrest due to other underlying condition Status: Acute Assessment and Plan: Upon arrival of the EMS to the home patient had PEA arrest with ROSC after 2 rounds of epinephrine and 2 rounds of CPR. -patient currently intubated and sedated for possible status asthmaticus -patient also on Nimbex (3) Close exposure to COVID-19 virus: Code(s): Z20.822 - Contact with and (suspected) exposure to COVID-19 Status: Acute Assessment and Plan: Patient has 2 children at home have tested positive for COVID also on the family members who she is around have tested positive for COVID-19 -patient is negative for COVID-19 PCR a and influenza A and B on admission -given the patient's exposure to COVID-19 is very recent, she could be in the incubation. Repeat SARS-CoV-2 PCR PCR on 06/15 (4) Asthma exacerbation: Qualifiers: Asthma severity: severe Asthma persistence: persistent Qualified Code(s): J45.51 - Severe persistent asthma with (acute) exacerbation Code(s): J45.901 - Unspecified asthma with (acute) exacerbation Status: Acute Assessment and Plan: 06/12/21: CT chest, abdomen, pelvis Patchy airspace opacities in the lungs which could reflect atelectasis or possibly pneumonia. No acute findings of the abdomen or pelvis. (5) Fever: Code(s): R50.9 - Fever, unspecified Status: Acute Assessment and Plan: Patient had low-grade fevers of T-max 100.0?, blood cultures growing Gram-positive cocci in clusters, 1/2 bottles -start patient on clindamycin as she is allergic to vancomycin (6) DVT prophylaxis: Code(s): Z29.9 - Encounter for prophylactic measures, unspecified Status: Acute Assessment and Plan: Continue subQ Lovenox Additional Plan Stress ulcer prophylaxis: Pepcid Nutrition: Tolerating tube feeds Code status: Full code Critical care time spent: 32 minutes This dictation may have been done utilizing a voice recognition system. Attempts have been made to correct errors. However, there may be uncorrected grammatical, spelling, and recognition errors present. Due to a high probability of clinically significant, life threatening deterioration, the patient required my highest level of preparedness to intervene emergently and I personally spent this critical care time directly and personally managing the patient. This critical care time included obtaining a history; examining the patient; pulse oximetry; ordering and review of studies; arranging urgent treatment with development of a management plan; evaluation of patient's response to treatment; frequent reassessment; and discussions with other providers. It was exclusive of separately billable procedures and treating other patients and teaching time. Please see Assessment and Plan section and the rest of the note for further information on patient assessment and treatment Subjective Date/time seen: 06/14/21 09:22 40yo female with asthma her for cardiopulmon
[2021-06-14] MEDS: POTASSIUM PHOS/SODIUM PHOS 250 MG TABLET PO (10:47)
--- NOTE | 2021-06-14 11:07 | ECG_ITS ---
Measurements Intervals [place] Rate: 80 P: 3 [place]: 96 QRS: 8 QRSD: 90 T: 36 QT: 396 QTc: 458 Interpretive Statements SINUS RHYTHM WITH SHORT [place] INTERVAL POSSIBLE RIGHT VENTRICULAR CONDUCTION DELAY [RSR (QR) IN V1/V2] COMPARED TO ECG 06/12/2021 20:42:11 PATIENT NO LONGER TACHYCARDIC AND IMPROVEMENT IN ST SEGMENT DEPRESSION Electronically Signed On 06-14-2021 15:27:36 CDT by Qamar Castro M.D.
[2021-06-14] MEDS: LIDOCAINE HCL 1% PF INJ 5 ML VIAL INFILTRATE (11:15)
--- NOTE | 2021-06-14 11:42 | PCNFU ---
Nutrition Follow-Up Complete: Inadequate Oral Intake as related to mechanical ventilation as evidenced by NPO. Goal: Meet estimated nutritional needs Patient is progressing towards goal. We will continue current goal. Pt current nutrition is Vital 1.5 at 45 ml/hr over 22 hours. Last recorded weight is 59.3 kg-stable Bowel Motility:+BM reported 06/14 Labs Reviewed:K 3.1,BUN 0.5, Alb 3.4, Glu 145 Meds Noted:Keppra, Fentanyl, Versed, Nimbex, Colace Skin:WNL Additional Notes:Patient remains on mechanical vent CMV mode and tube feedings of Vital 1.5 at 45 ml/hr over 22 hours. Patient does have a soybean allergy tube feeding is soy free. Current tube feeding is providing patient with 1485 kcals/67 gms protein/756 ml water. Meeting 100% caloric needs and 96% of protein needs. Free water flush 30 ml q 4 hours. Agree with diet orders. Will monitor in ICU rounds and reassess every Thursday and Thursday.
--- NOTE | 2021-06-14 12:30 | PM.IMPN ---
Progress Note: A&P Assessment and Plan (1) Acute respiratory failure: Code(s): J96.00 - Acute respiratory failure, unspecified whether with hypoxia or hypercapnia Status: Acute Assessment and Plan: Acute respiratory failure related to asthma exacerbation and subsequent cardiac arrest requiring intubated 06/12/21 in the field. Most recent ABG better at 7.48/32/107 on MV. Continue current treatment plan with abx, steroids and sophia treatments. Sedated with fentanyl and Versed; Nimbex for neuromuscular blockade with plans to stop this today. Continue MV. Appreciate health care marketing manager input. (2) Cardiac arrest due to respiratory disorder: Code(s): J98.9 - Respiratory disorder, unspecified; I46.8 - Cardiac arrest due to other underlying condition Status: Acute Assessment and Plan: Upon arrival, EMS found the patient with shallow respirations with altered mental status. Assessment revealed no pulse so CPR started for PEA with ROSC achieved after 2 rounds of epinephrine and 2 rounds of CPR. Patient was then intubated. Suspect respiratory arrest resulting in a cardiac arrest. Patient currently intubated, sedated and paralyzed. She was started on Keppra for seizure prophylaxis. Plan to wean off paralytics today. EKG and Trop noted. Wean sedation to assess mental status when able. (3) Elevated troponin: Code(s): R77.8 - Other specified abnormalities of plasma proteins Status: Acute Assessment and Plan: As above. EKG showing sinus tachycardia with incomplete right bundle-branch block and ST depression. Troponin was elevated on admission as climbed to 0.85. Elevated troponins and EKG changes most likely related to respiratory arrest that resulted in cardiac arrest. Will check ECHo and repeat EKG. Add Trop. (4) Lactic acidosis: Code(s): E87.2 - Acidosis Status: Acute Assessment and Plan: Lactic acid 8.2 on admission related to the code. LA still elevated probably contributing to the metabolic acidosis. Albuterol can cause elevated LA so this may be contributing as well. Albuterol was changed to Xopenex. Lactic acid level normal now. (5) Pneumonia: Code(s): J18.9 - Pneumonia, unspecified organism Status: Acute Assessment and Plan: Chest CT showing patchy airspace opacities in the lungs which could reflect atelectasis or possibly pneumonia. Suspect PNA with the low grade fevers and elevated WBC. Steroids making the WBC higher today. BCx (1of2) positive for gram positive cocci in clusters. Could be from PNA or possibly contaminate. Could explain why her asthma worsened. Check urine Ag studies. Continue IV abx. (6) Bacteremia: Code(s): R78.81 - Bacteremia Status: Acute Assessment and Plan: Positive BCx as mentioned above. If real, then patient with septicemia present on admission. Abx adjusted and BCx repeated. (7) Close exposure to COVID-19 virus: Code(s): Z20.822 - Contact with and (suspected) exposure to COVID-19 Status: Acute Assessment and Plan: Multiple family memebers have tested positive for COVID recently. Patient is vaccinated against COVID. She was negative for COVID-19 PCR and influenza A and B on admission. CT chest showing patchy airspace opacities in the lungs which could reflect atelectasis or possibly pneumonia. She is currently on isolation for possible COVID. Repeat testing being planned. Continue abx. (8) Asthma exacerbation: Qualifiers: Asthma persistence: persistent Asthma severity: severe Qualified Code(s): J45.51 - Severe persistent asthma with (acute) exacerbation Code(s): J45.901 - Unspecified asthma with (acute) exacerbation Status: Acute Assessment and Plan: CT ch/abd/pelvis showing patchy airspace opacities in the lungs which could reflect atelectasis or possibly pneumonia. No acute findings of the abdomen or pelvis. No wheezing but poor air exchange o
[2021-06-14 13:40] LABS: Troponin I 0.675 ng/mL (0.000-0.034)
[2021-06-14] MEDS: CENTRAL LINE FLUSH 10 ML IV PUSH ×2 (15:37→20:07)
[2021-06-14] MEDS: FENTANYL 2,500MCG/NS250ML(*CRX 2,500 MCG/250 ML BAG 10 MCG IV CONT (20:01)
[2021-06-14] MEDS: hydrALAZINE HCL 20 MG/ML VIAL 10 MG IV PUSH (23:38)
[2021-06-15] VITALS (28 sets, daily range): BP systolic 127–175; BP diastolic 78–120; PULSE 87–158; RESP 24–44; TEMP 37.6–38.8; O2SAT 95–99
[2021-06-15] MEDS: MANNITOL 20% 500 ML 1500 ML IV CONT (00:29)
[2021-06-15] MEDS: ACETAMINOPHEN ELIXIR 325 MG/10.15 ML UDC 650 MG FEED TUBE (01:14)
--- NOTE | 2021-06-15 01:26 | PM.IMPN ---
Subjective Date/time seen: 06/15/21 01:26 Interval history: I discussed with the inclusion intern patient has anisocoria has postturing of lower extremity CT scan showed diffuse brain edema with partial tonsillar herniation I called [facility] I called [employer] [facility] I called [facility] was requested to accept the patient too Per multiple expert including 2 neurosurgeons 3 inclusion intern patient has advanced today anoxic brain injury with poor prognosis to terminal illness pending bed at [facility] will accept the patient if no bed available within few hours Please update regarding bed situation I spent more than 3 and half an hour on the transfer process But unfortunately very poor prognosis Progressive Care Nurse aware Family aware Patient nurse aware Objective Data Vital Signs Vital Signs: Vital Signs - 24 hr 06/14/21 02:00 06/14/21 02:14 06/14/21 02:16 Temperature 99.0 F Pulse Rate 101 H 102 H 104 H Respiratory Rate 24 H 24 H Blood Pressure 111/76 Pulse Oximetry 24 L 100 06/14/21 04:00 06/14/21 04:35 06/14/21 04:37 Temperature 99.3 F Pulse Rate 95 95 96 Respiratory Rate 24 H 24 H 24 H Blood Pressure 122/80 Pulse Oximetry 99 06/14/21 04:45 06/14/21 06:00 06/14/21 08:00 Temperature 100.0 F H 99.6 F Pulse Rate 94 96 106 H Respiratory Rate 24 H 24 H Blood Pressure 122/81 115/71 Pulse Oximetry 99 98 98 06/14/21 08:19 06/14/21 08:24 06/14/21 08:54 Temperature Pulse Rate 111 H 112 H 94 Respiratory Rate 24 H 24 H 24 H Blood Pressure 115/71 Pulse Oximetry 99 06/14/21 09:00 06/14/21 09:10 06/14/21 09:30 Temperature Pulse Rate 111 H 107 H 105 H Respiratory Rate 24 H 24 H 24 H Blood Pressure 126/72 126/75 Pulse Oximetry 06/14/21 10:00 06/14/21 10:47 06/14/21 10:48 Temperature 99.8 F H Pulse Rate 106 H 97 97 Respiratory Rate 27 H 24 H 24 H Blood Pressure 128/73 Pulse Oximetry 97 06/14/21 11:30 06/14/21 12:00 06/14/21 12:45 Temperature 99.8 F H Pulse Rate 89 90 88 Respiratory Rate 24 H 24 H Blood Pressure 136/93 H Pulse Oximetry 99 98 06/14/21 14:00 06/14/21 14:24 06/14/21 14:27 Temperature 99.4 F Pulse Rate 92 90 87 Respiratory Rate 24 H 24 H Blood Pressure 118/82 Pulse Oximetry 97 99 06/14/21 14:50 06/14/21 15:37 06/14/21 15:38 Temperature Pulse Rate 97 91 91 Respiratory Rate 24 H 24 H 24 H Blood Pressure Pulse Oximetry 06/14/21 16:00 06/14/21 17:11 06/14/21 17:30 Temperature 99.6 F Pulse Rate 82 61 66 Respiratory Rate 24 H 24 H Blood Pressure 126/84 Pulse Oximetry 98 97 06/14/21 17:31 06/14/21 18:00 06/14/21 20:01 Temperature 99.0 F 99.8 F H Pulse Rate 67 68 72 Respiratory Rate 24 H 24 H 24 H Blood Pressure 142/86 H 138/98 H Pulse Oximetry 96 97 06/14/21 20:21 06/14/21 20:31 06/14/21 21:00 Temperature Pulse Rate 75 75 80 Respiratory Rate 26 H 26 H 24 H Blood Pressure Pulse Oximetry 98 06/14/21 23:11 06/14/21 23:40 06/15/21 01:14 Temperature 101.5 F H Pulse Rate 78 60 Respiratory Rate 24 H Blood Pressure Pulse Oximetry 98 06/15/21 01:23 Temperature Pulse Rate 140 H Respiratory Rate Blood Pressure Pulse Oximetry 97 Intake/Output Intake/Output: Intake & Output 06/12/21 06/13/21 06/14/21 06/15/21 23:59 23:59 23:59 23:59 Intake Total 1550 5056.9 3704.1 Output Total 2625 2900 Balance 1550 2431.9 804.1 Meds/Results Medications: Active Medications Generic Name Dose Route Start Last Admin Trade Name Freq PRN Reason Stop Dose Admin Acetaminophen 650 mg 06/14/21 15:10 06/15/21 01:14 Acetaminophen Elixir 325 Mg/10.15 Ml Udc FEED TUBE 650 mg Q4H PRN Administration Mild Pain (1-3) or Fever Docusate Sodium 100 mg 06/14/21 09:00 06/14/21 20:07 Docusate Sodium Liq 100 Mg/10 Ml Udc PO 100 mg Q12HR NKECHI Administration Enoxaparin Sodium 40 mg 06/13/21 09:00
[2021-06-15] MEDS: IPRATROPIUM BR 0.02% INH SOLN 0.5 MG/2.5 ML VIAL INHALATION ×2 (01:36→08:30)
[2021-06-15] MEDS: PROPOFOL IV EMULSION 100 ML 1.78 MG IV CONT (02:08)
[2021-06-15 05:11] LABS: Alveolar/Arterial O2 Gradient 91.4 mmHg; Base Excess ABG 3.5 mEq/l (+/-2.0); Carboxyhemoglobin 0.2 % THb (0-2.0); Fractional Inspired Oxygen 30 %; HCO3 ABG 25.8 mEq/l (22.0-26.0); Methemoglobin ABG 0.5 %THb (0-1.5); Oxygen Content ABG 18.5 %vol (16.0-22.0); Oxygen Saturation ABG 97.4 % (95.0-100.0); PCO2 ABG 31.9 mmHg (35.0-45.0); PO2 FiO2 Ratio Arterial Blood 2.83 %; Reduced Hemoglobin 3.3 %THb (0-5.0); Total Hemoglobin 13.7 g/dL (12.0-18.0)
[2021-06-15 05:16] LABS: Modified Allen's Test Unable to perform; Site Drawn LEFT RADIAL; pH ABG 7.525 (7.350-7.450)
[2021-06-15 05:17] LABS: Arterial Blood Gas PEEP 5 cmH2O; Arterial Blood Gas Tidal Volume 370 ml; Arterial Blood Gas Vent Mode CMV; Arterial Blood Gas Ventilator rate 24 /MIN; Device VENTILATOR
[2021-06-15] MEDS: hydrALAZINE HCL 20 MG/ML VIAL 10 MG IV PUSH (05:59)
[2021-06-15] MEDS: CLINDAMYCIN 600 MG/D5W 50 ML 600 MG/50 ML PIGGYBACK 100 MG IVPB (06:00)
[2021-06-15] MEDS: CENTRAL LINE FLUSH 10 ML IV PUSH (06:00)
[2021-06-15] MEDS: methylPREDNISolone SOD SUCC 125 MG VIAL 60 MG IV PUSH (06:00)
[2021-06-15] MEDS: ROCURONIUM BROMIDE 50 MG/5 ML VIAL IV PUSH (06:25)
[2021-06-15] MEDS: LORazepam INJ (*CRX) 2 MG/ML VIAL IV PUSH (06:25)
[2021-06-15 06:42] LABS: Basophils Absolute Auto 0.1 K/mm3 (0.0-0.1); Basophils Percent Auto 0.2 % (0.2-1.2); Hematocrit 39.6 % (37.0-47.0); Hemoglobin 13.5 g/dL (12.0-15.0); Immature Granulocyte Absolute 1.19 K/mm3 (0.00-0.031); Immature Granulocyte Percent A 3.1 % (0-0.5); Lymphocytes Absolute Auto 0.94 K/mm3 (0.9-3.2); Lymphocytes Percent Auto 2.5 % (18.3-44.2); Mean Corpuscular HGB Conc 34.1 g/dl (32-36); Mean Corpuscular Hemoglobin 32.2 pg (26-34); Mean Corpuscular Volume 94.5 fl (80-100); Mean Platelet Volume 9.9 fl (7.4-10.4); Monocytes Absolute Auto 2.3 K/mm3 (0.1-0.6); Monocytes Percent Auto 5.9 % (2.6-8.5); Neutrophils Absolute Auto 33.7 K/mm3 (1.3-6.7); Neutrophils Percent Auto 88.3 % (45.5-73.1); Platelet Count Result 298 k/mm3 (150-375); Red Blood Count 4.19 M/mm3 (4.2-5.4); Red Cell Distribution Width 12.9 % (11.5-14.5); White Blood Count 38.2 K/mm3 (4.5-10.0)
[2021-06-15 06:52] LABS: Alanine Aminotransferase 81 U/L (4-35); Albumin Level 3.8 g/dL (3.5-5.1); Alkaline Phosphatase 81 U/L (38-126); Anion Gap 7 mmol/L (8-16); Aspartate Amino Transferase 111 U/L (14-36); Bilirubin,Total 0.2 mg/dL (0.2-1.3); Blood Urea Nitrogen 21 mg/dL (7-17); Calcium 8.4 mg/dL (8.4-10.2); Carbon Dioxide 27 mmol/L (22-30); Chloride 111 mmol/L (98-107); Estimated CRCL calculation 79 ml/min; Estimated Glomerular Filt Rate > 60; Glucose 157 mg/dL (65-110); Magnesium 2.4 mg/dL (1.6-2.3); Phosphorus 1.7 mg/dL (2.5-4.5); Potassium 3.4 mmol/L (3.4-5.0); Sodium 145 mmol/L (137-145)
[2021-06-15] MEDS: CISATRACURIUM BESYLATE 200 MG in DEXTROSE 5% 80 ML 5.36 ML IV CONT (08:35)
[2021-06-15] MEDS: POTASSIUM/PHOSPHORUS/SODIUM 1.5 GM PACKET 1 PACKET PO (08:43)
[2021-06-15] MEDS: ENOXAPARIN 40 MG/0.4 ML SYRINGE SUB-Q (08:43)
[2021-06-15] MEDS: MINERAL OIL/WHITE PETROLATUM OINTMENT 1 APPLIC EACH EYE (08:44)
[2021-06-15] MEDS: levETIRAcetam 500MG/NACL 100ML 500 MG/100 ML BAG 400 MG IVPB (08:44)
[2021-06-15] MEDS: MIDAZOLAM 100MG/NS 100ML(*CRX) 100 MG/100 ML BAG IV CONT (08:50)
--- NOTE | 2021-06-15 09:00 | WPDINTPN ---
Progress Note: A&P Assessment and Plan (1) Increased intracranial pressure: Code(s): G93.2 - Benign intracranial hypertension Status: Acute Assessment and Plan: 06/14/2021 night, with the bedside RN was doing in your assessment she noticed anisocoria, stat CT head was obtained which showed diffuse loss of louie-white differentiation. There is no intracranial hemorrhage, acute infarction, or abnormal mass lesion. There is diffuse cerebral low attenuation, consistent with edema. There is effacement of the basilar cisterns. Partial tonsillar herniation is noted. The orbits are normal. Gaze divergence is noted. The paranasal sinuses, mastoids and calvarium are normal. -mannitol 50 g IV x1 was infused -patient has been hyperventilating, pCO2 is 31 and pH is 7.52 -patient also sedated with fentanyl, Versed and propofol, will start Nimbex infusion -patient has been accepted at [facility] and will be transferred today (2) Acute respiratory failure: Code(s): J96.00 - Acute respiratory failure, unspecified whether with hypoxia or hypercapnia Status: Acute Assessment and Plan: Acute respiratory failure likely related to asthma exacerbation, cardiac arrest -patient was intubated on 06/12/2021 on site by EMS -patient currently on CMV mode of ventilation, peep of 5, 30% FiO2. -ABGs showing respiratory alkalosis as patient is hyperventilating -chest x-ray reviewed -continue Solu-Medrol, -continue ceftriaxone, azithromycin and clindamycin -continue bronchodilators -sedated with fentanyl, Versed, propofol -will restart Nimbex, (3) Cardiac arrest due to respiratory disorder: Code(s): J98.9 - Respiratory disorder, unspecified; I46.8 - Cardiac arrest due to other underlying condition Status: Acute Assessment and Plan: Upon arrival of the EMS to the home patient had PEA arrest with ROSC after 2 rounds of epinephrine and 2 rounds of CPR. -patient currently intubated and sedated for possible status asthmaticus -CT brain on 06/14 constellation of findings suggestive of diffuse anoxic brain injury (4) Close exposure to COVID-19 virus: Code(s): Z20.822 - Contact with and (suspected) exposure to COVID-19 Status: Acute Assessment and Plan: Patient has 2 children at home have tested positive for COVID also on the family members who she is around have tested positive for COVID-19 -patient is negative for COVID-19 PCR a and influenza A and B on admission -given the patient's exposure to COVID-19 is very recent, she could be in the incubation. Repeat SARS-CoV-2 PCR today (5) Asthma exacerbation: Qualifiers: Asthma severity: severe Asthma persistence: persistent Qualified Code(s): J45.51 - Severe persistent asthma with (acute) exacerbation Code(s): J45.901 - Unspecified asthma with (acute) exacerbation Status: Acute Assessment and Plan: Continue Solu-Medrol, bronchodilators, currently intubated 06/12/21: CT chest, abdomen, pelvis Patchy airspace opacities in the lungs which could reflect atelectasis or possibly pneumonia. No acute findings of the abdomen or pelvis. (6) Fever: Code(s): R50.9 - Fever, unspecified Status: Acute Assessment and Plan: Patient had low-grade fevers of T-max 100.0?, blood cultures growing Staph hominis (resistant to clindamycin)-patient is allergic to vancomycin, sulfa drugs, tetracyclines. Blood cultures also positive for Staph epidermis -will start linezolid -DC clindamycin (7) DVT prophylaxis: Code(s): Z29.9 - Encounter for prophylactic measures, unspecified Status: Acute Assessment and Plan: Continue subQ Lovenox Additional Plan Stress ulcer prophylaxis: Pepcid Nutrition: Tolerating tube feeds Code status: Full code Critical care time spent: 36 minutes Patient has a bed available at [facility] where she will be transferred today This dictation ma
[2021-06-15 09:14] LABS: SARS-CoV-2 RNA PCR Negative
--- NOTE | 2021-06-15 10:27 | PC.NURSE ---
Patient transferred to [facility], room 693 via [facility], report provided to [facility]. Report provided to LUDY Maynard at [facility]. Accepting physician, Dr. Harvey. Patient left ICU at 1015. Right PICC line intact & patent, with Fentanyl, Versed, Propofol, Nimbex infusing without difficulty. Ventilator settings: CMV r 24 tv 370, p 5, fio2 30%, ET tube 7, & placement 23 @lip. Vital signs noted at discharge: t 99.2, oxygen sat 97%, respirations 24, heart rate 89, blood pressure 127/79.
--- NOTE | 2021-06-15 12:00 | PM.TDS ---
Transfer Discharge Sum: Prov Provider Date of admission: 06/12/21 21:52 Primary care physician: Alejandro Huerta DO Admitting clinician: Elissa Savage DO Consults: 06/12/21 21:55 Consult to Physician Routine Comment: Consulting Provider: Jimmie Kim Reason for consultation: Status asthmaticus, respiratory arrest, cardiac arrest, intubated Has provider been notified: Yes DS: Admitting Diagnosis Discharge Date 06/15/21 Admitting Diagnosis Respiratory arrest DS: Discharge Diagnosis Discharge Diagnosis (1) Increased intracranial pressure: Code(s): G93.2 - Benign intracranial hypertension Status: Acute Assessment and Plan: As per ICU NOTE _ 06/14/2021 night, with the bedside RN was doing in your assessment she noticed anisocoria, stat CT head was obtained which showed diffuse loss of louie-white differentiation. There is no intracranial hemorrhage, acute infarction, or abnormal mass lesion. There is diffuse cerebral low attenuation, consistent with edema. There is effacement of the basilar cisterns. Partial tonsillar herniation is noted. The orbits are normal. Gaze divergence is noted. The paranasal sinuses, mastoids and calvarium are normal. -mannitol 50 g IV x1 was infused -patient has been hyperventilating, pCO2 is 31 and pH is 7.52 -patient also sedated with fentanyl, Versed and propofol, will start Nimbex infusion -patient has been accepted at [facility] and will be transferred today (2) Acute respiratory failure: Code(s): J96.00 - Acute respiratory failure, unspecified whether with hypoxia or hypercapnia Status: Acute Assessment and Plan: PER ICU NOTE_ Acute respiratory failure likely related to asthma exacerbation, cardiac arrest -patient was intubated on 06/12/2021 on site by EMS (3) Cardiac arrest due to respiratory disorder: Code(s): J98.9 - Respiratory disorder, unspecified; I46.8 - Cardiac arrest due to other underlying condition Status: Acute Assessment and Plan: PER ICU NOTE _ Upon arrival of the EMS to the home patient had PEA arrest with ROSC after 2 rounds of epinephrine and 2 rounds of CPR. -patient currently intubated and sedated for possible status asthmaticus -CT brain on 06/14 constellation of findings suggestive of diffuse anoxic brain injury (4) Close exposure to COVID-19 virus: Code(s): Z20.822 - Contact with and (suspected) exposure to COVID-19 Status: Acute Assessment and Plan: PER ICU NOTE - Patient has 2 children at home have tested positive for COVID also on the family members who she is around have tested positive for COVID-19 -patient is negative for COVID-19 PCR a and influenza A and B on admission -given the patient's exposure to COVID-19 is very recent, she could be in the incubation. (5) Asthma exacerbation: Qualifiers: Asthma severity: severe Asthma persistence: persistent Qualified Code(s): J45.51 - Severe persistent asthma with (acute) exacerbation Code(s): J45.901 - Unspecified asthma with (acute) exacerbation Status: Acute Assessment and Plan: PER ICU NOTE -Continue Solu-Medrol, bronchodilators, currently intubated 06/12/21: CT chest, abdomen, pelvis Patchy airspace opacities in the lungs which could reflect atelectasis or possibly pneumonia. No acute findings of the abdomen or pelvis. (6) Fever: Code(s): R50.9 - Fever, unspecified Status: Acute Assessment and Plan: PER ICU NOTE - Patient had low-grade fevers of T-max 100.0?, blood cultures growing Staph hominis (resistant to clindamycin)-patient is allergic to vancomycin, sulfa drugs, tetracyclines. Blood cultures also positive for Staph epidermis -will start linezolid -DC clindamycin (7) DVT prophylaxis: Code(s): Z29.9 - Encounter for prophylactic measures, unspecified Status: Acute Assessment and Plan: Continue Reed Crowe
[2021-06-17 00:27] LABS: Pneumococcal Antigen Urine Not Detected (Not Detected)
[2021-06-18 04:16] LABS: Legionella pneumophila Ag Ur Not Detected (Not Detected)
== END 2021-06-15 10:13 | disposition short-term general hospital (02) | DRG 208 ==
LOC: ANHED 22:20 → ANHICU 06-13 09:41
PROVIDERS: Internal Medicine; Admitting Provider Internal Medicine; Emergency Provider Emergency Medicine; PCP Internal Medicine; Visit Provider Family Medicine
DX: J96.00 Acute respiratory failure, unspecified whether with hypoxia or hypercapnia (principal); I46.8 Cardiac arrest due to other underlying condition; E87.2 Acidosis; R78.81 Bacteremia; J45.51 Severe persistent asthma with (acute) exacerbation; Z20.822 Contact with and (suspected) exposure to COVID-19; F17.210 Nicotine dependence, cigarettes, uncomplicated; F90.9 Attention-deficit hyperactivity disorder, unspecified type; F41.9 Anxiety disorder, unspecified; F32.9 Major depressive disorder, single episode, unspecified; E55.9 Vitamin D deficiency, unspecified; Z82.5 Family history of asthma and other chronic lower respiratory diseases; R50.9 Fever, unspecified; B95.7 Other staphylococcus as the cause of diseases classified elsewhere; Z79.899 Other long term (current) drug therapy; Z79.891 Long term (current) use of opiate analgesic; Z79.1 Long term (current) use of non-steroidal anti-inflammatories (NSAID)
CPT/HCPCS: 36415; 36569; 36600; 70450; 71045; 71260; 74177; 80053; 80061; 80307; 81001; 82375; 82805; 82948; 83050; 83605; 83735; 83880; 83930; 84100; 84443; 84484; 85025; 85380; 85610; 85730; 86140; 86850; 86900; 86901; 87040; 87077; 87186; 87449; 87804; 87899; 92950; 93005; 93306; 94003; 94640; 96365; 96375; 99291; A9270; C1751; C9803; J0131; J0360; J0456; J0696; J1650; J1953; J2060; J2250; J2704; J2930; J3010; J3475; J3480; J7030; J7040; J7120; Q9967; U0003; U0005